=== PATIENT | male | born 1985 | race Caucasian/White ===

== ENCOUNTER 2023-02-21 14:10 | Emergency (ER) | payer BC, SELFPAY ==
--- NOTE | ~2023-02-21 | XR_ITS ---
EXAMINATION: XR chest 2V Exam Date/Time: 02/21/2023 17:45 CDT HISTORY: irregular heart rate Comparison: None. RESULT: Lines, tubes, and devices: None. Lungs and pleura: Clear. Cardiomediastinal silhouette: Normal. Other: No acute osseous or upper abdominal finding. IMPRESSION: No acute cardiopulmonary process. Reviewed, dictated and finalized at location K.
--- NOTE | 2023-02-21 14:12 | ECG_ITS ---
Measurements Intervals [place] Rate: 86 P: 38 IN: 170 QRS: 0 QRSD: 98 T: 32 QT: 352 QTc: 423 Interpretive Statements SINUS RHYTHM NORMAL ECG NO PREVIOUS ECG AVAILABLE FOR COMPARISON Electronically Signed On 02-21-2023 14:38:48 CDT by Barrera Voss D.O.
[2023-02-21 14:28] VITALS: BP 153/90; PULSE 109; RESP 20; TEMP 36.9; O2SAT 100
--- NOTE | 2023-02-21 17:29 | ED.GENADULT ---
HPI - General Adult General Chief complaint: Arrhythmia/Palpitations <Estefany Romero September, HEEL GUMMER - Last Filed: 02/21/23 17:31> Stated complaint: irregular heart beat <Estefany Romero September, - Last Filed: 02/21/23 17:31> Time Seen by Provider: 02/21/23 17:29 <Estefany Romero September, - Last Filed: 02/21/23 17:31> History of Present Illness HPI narrative: Evgeny Moralez is a 37 y/o male without any known PMHx who presents today with concerns for an irregular heart rate. Patient states that he was at work getting ready to do a PFT and was told that he was in an irregular rhythm and was sent here for further evaluation. He denies chest pain/ shortness of breath/ abdominal pain/recent illness/ cough <Estefany Romero September, - Last Filed: 02/21/23 17:31> Evgeny Moralez is a 37 y/o male without any known PMHx who presents today with concerns for an irregular heart rate. Patient states that he was at work getting ready to do a PFT and was told that he was in an irregular rhythm and was sent here for further evaluation. He denies chest pain/ shortness of breath/ abdominal pain/recent illness/ cough Patient reports she was undergoing a pulmonary function test at work and they noticed that his heart rate was irregular and they were concerned that he may have atrial fibrillation. The patient was sent to the emergency department for evaluation the patient has had no symptoms with this and is otherwise felt fine patient denies syncope denies near syncope denies palpitations <Aj Penaloza MD - Last Filed: 02/21/23 21:30> Related Data Allergies/adverse reactions: Allergies Allergy/AdvReac Type Severity Reaction Status Date / Time morphine Allergy Mild Unknown Verified 02/21/23 14:11 <Estefany Romero September, - Last Filed: 02/21/23 17:31> Review of Systems Review of Systems: A 10 system review of systems was completed on the patient and is negative except for what is stated in the HPI. Nursing and ancillary documentation was reviewed. <Aj Penaloza MD - Last Filed: 02/21/23 21:30> Exam Narrative: GENERAL: Well-appearing, well-nourished, and in no acute distress. HEAD: Normocephalic, atraumatic. EYES: PERRLA and EOMI. ENT: Nares clear, no rhinorrhea or epistaxis. Mucous membranes moist. NECK: Supple. CHEST: Clear to auscultation. No respiratory distress. HEART: Regular rate and rhythm. No murmur heard. Normal peripheral pulses. ABDOMEN: Soft, nontender, nondistended, normal active bowel sounds. EXTREMITIES: Normal range of motion. No edema. SKIN: Warm, dry, no rash. NEURO: No focal deficits. Alert and oriented x3. PSYCH: Normal mood and affect. <Aj Penaloza MD - Last Filed: 02/21/23 21:30> Course Vital Signs Vital signs: Vital Signs Temperature 36.9 C 02/21/23 14:28 Pulse Rate 109 H 02/21/23 14:28 Respiratory Rate 20 02/21/23 14:28 Blood Pressure 153/90 H 02/21/23 14:28 Pulse Oximetry 100 02/21/23 14:28 Oxygen Delivery Room Air 02/21/23 14:28 Temperature 36.9 C 02/21/23 14:28 Pulse Rate 109 H 02/21/23 14:28 Respiratory Rate 20 02/21/23 14:28 Blood Pressure 153/90 H 02/21/23 14:28 Pulse Oximetry 100 02/21/23 14:28 Oxygen Delivery Room Air 02/21/23 14:28 <Estefany Richards, HEEL GUMMER - Last Filed: 02/21/23 17:31> Vital Signs Temperature 36.9 C 02/21/23 14:28 Pulse Rate 109 H 02/21/23 14:28 Respiratory Rate 20 02/21/23 14:28 Blood Pressure 153/90 H 02/21/23 14:28 Pulse Oximetry 100 02/21/23 14:28 Oxygen Delivery Room Air 02/21/23 14:28 Temperature 36.9 C 02/21/23 14:28 Pulse Rate 109 H 02/21/23 14:28 Respiratory Rate 20 02/21/23 14:28 Blood Pressure 153/90 H 02/21/23 14:28 Pulse Oximetry 100 02/21/23 14:28 Oxygen Delivery Room Air 02/21/23 14:28 <Aj Penaloza MD - Last Filed: 02/21/23 21:30> Medical Decision Making MDM Narrative Medical decision making narrative: Dif
[2023-02-21] MEDS: ASPIRIN 81 MG CHEWABLE TABLET 324 MG PO (17:34)
[2023-02-21 17:40] LABS: Basophils Absolute Auto 0.1 K/mm3 (0.0-0.1); Basophils Percent Auto 0.6 % (0.2-1.2); Eosinophils Absolute Auto 0.3 K/mm3 (0-0.3); Eosinophils Percent Auto 2.4 % (0-4.4); Hematocrit 45.1 % (42.0-52.0); Hemoglobin 15.4 g/dL (14.0-18.0); Immature Granulocyte Absolute 0.06 K/mm3 (0.00-0.031); Immature Granulocyte Percent A 0.4 % (0-0.5); Lymphocytes Absolute Auto 2.17 K/mm3 (0.9-3.2); Lymphocytes Percent Auto 15.6 % (18.3-44.2); Mean Corpuscular HGB Conc 34.1 g/dl (32-36); Mean Corpuscular Hemoglobin 29.1 pg (26-34); Mean Corpuscular Volume 85.3 fl (80-100); Mean Platelet Volume 10.1 fl (7.4-10.4); Monocytes Absolute Auto 0.7 K/mm3 (0.1-0.6); Neutrophils Absolute Auto 10.6 K/mm3 (1.3-6.7); Platelet Count Result 309 k/mm3 (150-375); Red Blood Count 5.29 M/mm3 (4.6-6.20); Red Cell Distribution Width 12.6 % (11.5-14.5); White Blood Count 13.9 K/mm3 (4.5-10.0)
[2023-02-21 17:51] LABS: Alanine Aminotransferase 36 U/L (6-50); Alkaline Phosphatase 61 U/L (38-126); Anion Gap 8 mmol/L (8-16); Aspartate Amino Transferase 37 U/L (17-59); Blood Urea Nitrogen 17 mg/dL (9-20); Calcium 9.7 mg/dL (8.4-10.2); Carbon Dioxide 29 mmol/L (22-30); Chloride 101 mmol/L (98-107); Estimated CRCL calculation 121 ml/min; Estimated Glomerular Filt Rate > 60; Glucose 104 mg/dL (65-110); Lipase 69 U/L (23-300); Potassium 4.1 mmol/L (3.4-5.0); Sodium 138 mmol/L (137-145)
[2023-02-21 17:55] LABS: Partial Thromboplastin Time 29.3 SECONDS (22.3-36.8); Prothrombin Time 13.6 Seconds (11.1-14.7)
[2023-02-21 18:03] LABS: Troponin I < 0.012 ng/mL (0.000-0.034)
[2023-02-21 20:06] LABS: Magnesium 2.1 mg/dL (1.6-2.3)
[2023-02-21 21:20] LABS: Troponin I < 0.012 ng/mL (0.000-0.034)
[2023-02-21 21:45] VITALS: BP 123/88; PULSE 78; RESP 15; O2SAT 99
== END 2023-02-21 21:47 | disposition home or self-care (01) ==
PROVIDERS: Nurse Practitioner Family; Emergency Provider Emergency Medicine; PCP Family Medicine
DX: R00.2 Palpitations (principal); I49.3 Ventricular premature depolarization
CPT/HCPCS: 36415; 71046; 80053; 83690; 83735; 84484; 85025; 85610; 85730; 93005; 99284; A9270